=== PATIENT | female | born 1995 | race Caucasian/White ===

== ENCOUNTER 2016-10-02 16:19 | Observation (INO) | payer BC ==
[2015-05-12 09:15] VITALS: BP 111/75
[~2016-10-02 16:19] MED LIST: HYDR-971 PO; NAPR500T PO
== END 2016-10-02 18:35 | disposition home or self-care (01) ==
LOC: 3 SO LND 16:20
PROVIDERS: ADMIT Specialist; ATTEND Specialist
DX: O62.9 Abnormality of forces of labor, unspecified (principal); Z3A.32 32 weeks gestation of pregnancy
CPT/HCPCS: G0378; G0379

== ENCOUNTER 2016-10-07 09:13 | Inpatient (IN) | payer BC ==
[~2016-10-07] VITALS: Ht 160 cm; Wt 81.6 kg
[2016-10-07] MEDS ORDERED: ACETAMINOPHEN 325 MG TABLET. PO PRN (11:00)
[2016-10-07] MEDS ORDERED: ZOLPIDEM 5 MG TABLET. PO PRN (11:00)
[2016-10-07] MEDS ORDERED: ONDANSETRON PF 4 MG/2 ML VIAL. IV PRN ×2 (11:00→16:15)
[2016-10-07] MEDS ORDERED: MAGNESIUM SULFATE 4GM 100 ML IV ONE (11:15)
[2016-10-07] MEDS: IV RINGERS,LACTATED 1000ML 1,000 ML IV SCH ×2 (12:32→19:46)
[2016-10-07] MEDS: MAGNESIUM SULFATE 20GM 500 ML IV SCH ×2 (12:53→23:07)
[2016-10-07 13:21] LABS: BASO % 0 % (0-3); EOS % 1 % (0-3); HEMATOCRIT 29.9 % (36.0-47.0); HEMOGLOBIN 9.8 g/dL (12.0-15.5); LYMPH # 1.3 x10^3/uL (1.0-4.8); LYMPH % 8 % (24-48); MEAN CORPUSCULAR HEMOGLOBIN 28 pg (25-35); MEAN CORPUSCULAR HGB CONC 33 g/dL (31-37); MEAN CORPUSCULAR VOLUME 84 fL (79-100); MONO % 6 % (0-9); NEUT % 86 % (31-73); PLATELET COUNT 234 x10^3/uL (140-400); RED BLOOD COUNT 3.58 x10^6/uL (3.50-5.40); RED CELL DISTRIBUTION WIDTH 16.2 % (11.5-14.5); WHITE BLOOD COUNT 17.3 x10^3/uL (4.0-11.0)
[2016-10-07 14:46] LABS: PLT ESTIMATE ADEQUATE (ADEQUATE); POLYCHROMASIA SLIGHT; TOXIC GRANULATION SLIGHT
[2016-10-07] MEDS ORDERED: HYDROXYZINE PAMOATE 25 MG CAPSULE PO PRN ×2 (16:15→20:00)
--- NOTE | 2016-10-07 17:34 | PDOC1 ---
OB - History Hx of Present Care: Good Care Ultrasounds: Normal mid trimester US Obstetrical Complications: Other (PTL; completed corticosteroids last week.) Medical Complications: None Past Family/Social History * Past Medical, Surgical, Family and Obstetric Histories reviewed from chart. Blood Type: AB+ Rubella: Immune RPR/VDRL: Negative GBS Status: Unknown HBsAG: Negative OB - Chief Complaint & HPI Date of Admission: Date of Admission: Oct 07, 2016 at 09:13 Chief Complaint/History : 2 Para: 1 EGA: 31 Reason for admission: labor Admission Nurse Assessment Rev: Yes Problems: OB - Admission Exam Physical Exam HEENT: Normal Heart: Regular Rate Lungs: Clear, Equal Abdomen: Gravid, Soft, Tender Extremities: Edema Reflexes: Normal Cervical Dilatation: 2cm Effacement: 50% Station: -3 Membranes: Intact Heart Rate: Normal Accelerations: Accelerations Present Decelerations: No decelerations Contractions on Admission: 6-10 Minutes Apart Intensity: Mild Text A: 33 +2 wks IUP PTL s/p corticosteroids last week P: Admit for IV hydration and magnesium sulfate prophylaxis. Continuous monitoring. DEANDRE BANEGAS Jr, MD Oct 07, 2016 17:33
[2016-10-08] MEDS: HYDROXYZINE PAMOATE 25 MG CAPSULE PO SCH ×4 (02:11→21:20)
[2016-10-08] MEDS: MAGNESIUM SULFATE 20GM 500 ML IV SCH ×2 (07:00→17:00)
[2016-10-08 12:19] VITALS: BP 103/63
--- NOTE | 2016-10-08 13:25 | PDOC ---
OB Progress Note Date of Service 10/08/16 Time of Evaluation 1320 Notes Pt. feeling better. No c/o abd contractions since starting Vistaril and Procardia. Counseled on labor and contractions. Lab Laboratory Tests Test 10/07/16 13:00 White Blood Count 17.3x10^3/uL (4.0-11.0) Red Blood Count 3.58x10^6/uL (3.50-5.40) Hemoglobin 9.8g/dL (12.0-15.5) Hematocrit 29.9% (36.0-47.0) Mean Corpuscular Volume 84fL (79-100) Mean Corpuscular Hemoglobin 28pg (25-35) Mean Corpuscular Hemoglobin Concent 33g/dL (31-37) Red Cell Distribution Width 16.2% (11.5-14.5) Platelet Count 234x10^3/uL (140-400) Neutrophils (%) (Auto) 86% (31-73) Lymphocytes (%) (Auto) 8% (24-48) Monocytes (%) (Auto) 6% (0-9) Eosinophils (%) (Auto) 1% (0-3) Basophils (%) (Auto) 0% (0-3) Neutrophils # (Auto) 14.9x10^3uL (1.8-7.7) Lymphocytes # (Auto) 1.3x10^3/uL (1.0-4.8) Monocytes # (Auto) 0.9x10^3/uL (0.0-1.1) Eosinophils # (Auto) 0.1x10^3/uL (0.0-0.7) Basophils # (Auto) 0.0x10^3/uL (0.0-0.2) Segmented Neutrophils % 87% (35-66) Band Neutrophils % 5% (0-9) Lymphocytes % 6% (24-48) Monocytes % 2% (0-10) Toxic Granulation Slight Platelet Estimate Adequate (ADEQUATE) Polychromasia Slight Medications Current Medications Lactated Ringer's (Iv Lactated Ringers) 1,000 ml @ 125 mls/hr Q8H IV Last administered on 10/07/16t 19:46; Start 10/07/16 at 11:15 Acetaminophen (Tylenol) 650 mg PRN Q6HRS PRN PO MILD PAIN / TEMP; Start at 11:00 Ondansetron HCl (Zofran) 4 mg PRN Q4HRS PRN IV NAUSEA/VOMITING Last administered on 10/07/16 16:25; Start 10/07/16 at 11:00 Zolpidem Tartrate 5 mg 5 mg PRN QHS PRN PO INSOMNIA; Start 10/07/16 at 11:00 Magnesium Sulfate/ Dextrose 100 ml @ 25 mls/hr 1X ONCE IV Last administered on 10/07/16 12:33; Start 10/07/16 at 11:15; Stop 10/07/16 at 15:14; Status DC Magnesium Sulfate (Magnesium Sulfate PREMIX 20GM) 500 ml @ 50 mls/hr Q10H IV Last administered on 10/07/16 23:07; Start 10/07/16 at 11:00 Ondansetron HCl (Zofran) 8 mg PRN Q6HRS PRN IV NAUSEA/VOMITING; Start 10/07/16 at 16:15 Hydroxyzine Pamoate (Vistaril) 50 mg PRN Q6HRS PRN PO ITCHING Last administered on 10/07/16 20:06; Start 10/07/16 at 16:15; Stop 10/08/16 at 02:00 ; Status DC Hydroxyzine Pamoate (Vistaril) 50 mg PRN Q6HRS PRN PO ITCHING; Start 10/07/16 at 20:00; Status Cancel Hydroxyzine Pamoate (Vistaril) 50 mg Q6HRS PO Last administered on 10/08/16 09 :14; Start 10/08/16 at 02:00 Nifedipine (Procardia) 10 mg Q6HRS PO ; Start 10/08/16 at 12:00 Active Scripts Active Naprosyn (Naproxen) 500 Mg Tablet 1 Tab PO BID [place] 5-325 Tablet (Acetaminophen/Hydrocodone Bitart) 1 Each Tablet 1-2 Tab PO Q4-6HRS Naprosyn (Naproxen) 500 Mg Tablet 1 Tab PO BID [place] 5-325 Tablet (Acetaminophen/Hydrocodone Bitart) 1 Each Tablet 1-2 Tab PO Q4-6HRS Exam Abd: soft, non tender, fundus non tender Pelvic: deferred. Assessment A: 33+3 wks IUP PTL: stable Completed corticosteroids last week Plan of Care: Continue current Tx, Mgmt (If no contractions or cervical change , then consider d/c home tomorrow.) DEANDRE BANEGAS Jr, MD Oct 08, 2016 13:25
[2016-10-08] MEDS: NIFEDIPINE 10 MG CAPSULE PO SCH ×2 (18:00→18:32)
[2016-10-09] MEDS: MAGNESIUM SULFATE 20GM 500 ML IV SCH ×2 (03:00→13:00)
[2016-10-09] MEDS: HYDROXYZINE PAMOATE 25 MG CAPSULE PO SCH ×3 (03:16→14:35)
[2016-10-09] MEDS: NIFEDIPINE 10 MG CAPSULE PO SCH ×2 (05:45→12:06)
[2016-10-09] MEDS ORDERED: AMMONIA AROMATIC 15% INHALANT AMPUL. ONE ×2 (11:00→11:13)
[2016-10-09 12:06] VITALS: BP 111/58
--- NOTE | 2016-10-09 12:57 | PDOC ---
OB Progress Note Date of Service 10/09/16 Time of Evaluation 1250 Notes Pt. feeling stronger contractions. She is now taking PO procardia and vistaril for contractions. Lab Laboratory Tests Test 10/07/16 13:00 White Blood Count 17.3x10^3/uL (4.0-11.0) Red Blood Count 3.58x10^6/uL (3.50-5.40) Hemoglobin 9.8g/dL (12.0-15.5) Hematocrit 29.9% (36.0-47.0) Mean Corpuscular Volume 84fL (79-100) Mean Corpuscular Hemoglobin 28pg (25-35) Mean Corpuscular Hemoglobin Concent 33g/dL (31-37) Red Cell Distribution Width 16.2% (11.5-14.5) Platelet Count 234x10^3/uL (140-400) Neutrophils (%) (Auto) 86% (31-73) Lymphocytes (%) (Auto) 8% (24-48) Monocytes (%) (Auto) 6% (0-9) Eosinophils (%) (Auto) 1% (0-3) Basophils (%) (Auto) 0% (0-3) Neutrophils # (Auto) 14.9x10^3uL (1.8-7.7) Lymphocytes # (Auto) 1.3x10^3/uL (1.0-4.8) Monocytes # (Auto) 0.9x10^3/uL (0.0-1.1) Eosinophils # (Auto) 0.1x10^3/uL (0.0-0.7) Basophils # (Auto) 0.0x10^3/uL (0.0-0.2) Segmented Neutrophils % 87% (35-66) Band Neutrophils % 5% (0-9) Lymphocytes % 6% (24-48) Monocytes % 2% (0-10) Toxic Granulation Slight Platelet Estimate Adequate (ADEQUATE) Polychromasia Slight Medications Current Medications Lactated Ringer's (Iv Lactated Ringers) 1,000 ml @ 125 mls/hr Q8H IV Last administered on 10/07/16t 19:46; Start 10/07/16 at 11:15 Acetaminophen (Tylenol) 650 mg PRN Q6HRS PRN PO MILD PAIN / TEMP; Start at 11:00 Ondansetron HCl (Zofran) 4 mg PRN Q4HRS PRN IV NAUSEA/VOMITING Last administered on 10/07/16 16:25; Start 10/07/16 at 11:00 Zolpidem Tartrate 5 mg 5 mg PRN QHS PRN PO INSOMNIA; Start 10/07/16 at 11:00 Magnesium Sulfate/ Dextrose 100 ml @ 25 mls/hr 1X ONCE IV Last administered on 10/07/16 12:33; Start 10/07/16 at 11:15; Stop 10/07/16 at 15:14; Status DC Magnesium Sulfate (Magnesium Sulfate PREMIX 20GM) 500 ml @ 50 mls/hr Q10H IV Last administered on 10/07/16 23:07; Start 10/07/16 at 11:00 Ondansetron HCl (Zofran) 8 mg PRN Q6HRS PRN IV NAUSEA/VOMITING; Start 10/07/16 at 16:15 Hydroxyzine Pamoate (Vistaril) 50 mg PRN Q6HRS PRN PO ITCHING Last administered on 10/07/16 20:06; Start 10/07/16 at 16:15; Stop 10/08/16 at 02:00 ; Status DC Hydroxyzine Pamoate (Vistaril) 50 mg PRN Q6HRS PRN PO ITCHING; Start 10/07/16 at 20:00; Status Cancel Hydroxyzine Pamoate (Vistaril) 50 mg Q6HRS PO Last administered on 10/09/16 09 :18; Start 10/08/16 at 02:00 Nifedipine (Procardia) 10 mg Q6HRS PO Last administered on 10/09/16 12:06; Start 10/08/16 at 12:00 Ammonia (Aromatic Spirit) (Amoply) 1 each STK-MED ONCE .ROUTE ; Start 10/09/16 at 11:13; Stop 10/09/16 at 11:14; Status DC Active Scripts Active Naprosyn (Naproxen) 500 Mg Tablet 1 Tab PO BID [place] 5-325 Tablet (Acetaminophen/Hydrocodone Bitart) 1 Each Tablet 1-2 Tab PO Q4-6HRS Naprosyn (Naproxen) 500 Mg Tablet 1 Tab PO BID [place] 5-325 Tablet (Acetaminophen/Hydrocodone Bitart) 1 Each Tablet 1-2 Tab PO Q4-6HRS Exam Pelvic: cvx 3/80/-2 [place]: ctx's every 5-8 minutes FHT's Category 1 Assessment 33+4 wks IUP Completed corticosteroids Plan of Care: See new orders (Start IV fluids. Continue PO procardia and vistaril. If GBS positive, then start abx.) DEANDRE BANEGAS Jr, MD Oct 09, 2016 12:57
[2016-10-09] MEDS ORDERED: LOPERAMIDE 2 MG CAPSULE PO PRN (13:15)
[2016-10-09] MEDS: IV RINGERS,LACTATED 1000ML 1,000 ML IV SCH (14:00)
--- NOTE | 2016-10-09 15:03 | RAD ---
Obstetrical ultrasound, 10/09/2016: History: labor There is a single intrauterine fetus in a cephalic orientation. Due to the position, the head measurements were not optimal. A biparietal diameter of 8.5 cm was obtained suggesting a gestational age of 34 weeks. The femur length and abdominal circumference measurement suggests a gestational age of closer to 33 weeks. The average gestational age based on all of the measurements is 33 weeks and 3 days yielding a sonographic EDC of 11/24/2016. Normal activity and heart motion were seen. The heart rate was 137 bpm. The weight was estimated at 4 lbs 11 oz. +/- 11 ounces. No specific abnormality is detected. The placenta lies posteriorly extending into the fundal region. The amniotic fluid index of 10.5 is within normal limits. The cervix was not adequately delineated due to the position of the head. IMPRESSION: Single viable intrauterine fetus of 33-34 weeks gestational age as described above.
[2016-10-09] MEDS ORDERED: MAGNESIUM SULFATE 4GM 100 ML IV ONE (16:00)
[2016-10-09] MEDS ORDERED: AMPICILLIN 2 GM in IV NORMAL SALINE 100ML 100 ML IV ONE (16:00)
[2016-10-09] MEDS ORDERED: MAGNESIUM SULFATE 2GM 50 ML IV ONE (16:00)
[2016-10-09] MEDS ORDERED: ERYTHROMYCIN LACT 250 MG in IV NORMAL SALINE 100ML 100 ML IV SCH (18:00)
== END 2016-10-09 17:00 | disposition short-term general hospital (02) | DRG 778 ==
LOC: 3 SO LND 09:13 → OBSVTOIN 09:13
PROVIDERS: ADMIT Specialist; ATTEND Specialist
DX: O60.03 Preterm labor without delivery, third trimester (principal); Z3A.33 33 weeks gestation of pregnancy
CPT/HCPCS: 36415; 76805; 85007; 85027; 87653; J0290; J1364; J2405; J3475; J7120; Q0177

== ENCOUNTER 2016-10-15 11:04 | Observation (INO) | payer BC ==
[2016-10-15] MEDS ORDERED: ONDANSETRON PF 4 MG/2 ML VIAL. IV PRN (11:45)
[2016-10-15 11:48] LABS: BILIRUBIN,URINE SMALL (NEG); GLUCOSE,URINE NEGATIVE (NEG); NITRITE,URINE NEGATIVE (NEG); PROTEIN,URINE 100 mg/dL (NEG-TRACE); UROBILINOGEN,URINE 0.2 mg/dL (0.2 mg/dL)
[2016-10-15] MEDS ORDERED: IV RINGERS,LACTATED 1000ML 1,000 ML IV SCH (12:00)
[2016-10-15 12:04] LABS: BACTERIA,URINE FEW /HPF (0-FEW); RBC,URINE 0 /HPF (0-2); SQUAMOUS EPITHELIAL CELL,UR MANY /LPF
[2016-10-15] MEDS ORDERED: IV DEXTROSE 5%-LACT RINGERS 1,000 ML IV SCH (15:00)
[2016-10-15] MEDS ORDERED: ACETAMINOPHEN 500 MG TABLET PO PRN (15:45)
[2016-10-15 16:59] LABS: OBC FLU VALID
[2016-10-15 17:58] LABS: BASO % 0 % (0-3); EOS % 0 % (0-3); HEMATOCRIT 28.8 % (36.0-47.0); HEMOGLOBIN 9.2 g/dL (12.0-15.5); LYMPH # 0.6 x10^3/uL (1.0-4.8); LYMPH % 5 % (24-48); MEAN CORPUSCULAR HEMOGLOBIN 27 pg (25-35); MEAN CORPUSCULAR HGB CONC 32 g/dL (31-37); MEAN CORPUSCULAR VOLUME 84 fL (79-100); MONO % 5 % (0-9); NEUT % 89 % (31-73); PLATELET COUNT 195 x10^3/uL (140-400); RED BLOOD COUNT 3.45 x10^6/uL (3.50-5.40); WHITE BLOOD COUNT 11.9 x10^3/uL (4.0-11.0)
[2016-10-15 18:13] LABS: ALBUMIN 2.1 g/dL (3.4-5.0); ALBUMIN/GLOBULIN RATIO 0.6 (1.0-1.7); CALCIUM 8.1 mg/dL (8.5-10.1); CREATININE 0.6 mg/dL (0.6-1.0); GFR 123.9; POTASSIUM 3.6 mmol/L (3.5-5.1); TOTAL BILIRUBIN 0.4 mg/dL (0.2-1.0); TOTAL PROTEIN 5.8 g/dL (6.4-8.2)
[2016-10-15 18:39] LABS: ANISOCYTOSIS SLIGHT; HYPOCHROMIA SLIGHT; PLT ESTIMATE ADEQUATE (ADEQUATE)
== END 2016-10-15 20:15 | disposition home or self-care (01) ==
LOC: 3 SO LND 11:04
PROVIDERS: ADMIT Specialist; ATTEND Specialist
DX: O21.9 Vomiting of pregnancy, unspecified (principal); O26.893 Other specified pregnancy related conditions, third trimester; R19.7 Diarrhea, unspecified; Z3A.34 34 weeks gestation of pregnancy
CPT/HCPCS: 36415; 80053; 81001; 81003; 85007; 85027; 87086; 87804; 96360; 96361; G0378; G0379; J1720; J7120

== ENCOUNTER 2016-11-10 16:39 | Observation (INO) | payer BC | END 2016-11-10 22:03 | disposition home or self-care (01) | LOC: 3 SO LND 16:39 | PROVIDERS: ADMIT Specialist; ATTEND Specialist | DX: O26.893 Other specified pregnancy related conditions, third trimester (principal); M79.89 Other specified soft tissue disorders; O62.9 Abnormality of forces of labor, unspecified; Z3A.38 38 weeks gestation of pregnancy | CPT/HCPCS: G0378; G0379 ==

== ENCOUNTER 2016-11-12 16:35 | Inpatient (IN) | payer BC ==
[~2016-11-12] VITALS: Ht 160 cm; Wt 82.6 kg
[2016-11-12] MEDS ORDERED: IV RINGERS,LACTATED 1000ML 1,000 ML IV SCH (16:38)
[2016-11-12] MEDS ORDERED: ONDANSETRON PF 4 MG/2 ML VIAL. IV PRN (16:45)
[2016-11-12] MEDS ORDERED: ZOLPIDEM 5 MG TABLET. PO PRN ×2 (16:45→20:45)
[2016-11-12] MEDS ORDERED: TERBUTALINE 1 MG/ML VIAL. SQ PRN (16:45)
[2016-11-12] MEDS ORDERED: LIDOCAINE 1% PF 30 ML VIAL. INJ PRN (16:45)
[2016-11-12] MEDS ORDERED: IBUPROFEN 600 MG TABLET. PO PRN (16:45)
[2016-11-12] MEDS ORDERED: 0.9 % SODIUM CHLORIDE 10 ML DISP.SYRIN. IV PRN ×2 (16:45→20:45)
[2016-11-12] MEDS ORDERED: FENTANYL PF 100 MCG/2 ML VIAL. IV PRN (16:45)
[2016-11-12] MEDS ORDERED: OXYTOCIN 30 UNIT/500 ML PREMIX 500 ML IV PRN ×3 (16:45→20:45)
[2016-11-12 17:17] VITALS: BP 110/75
[2016-11-12 18:13] LABS: HEMATOCRIT 31.4 % (36.0-47.0); HEMOGLOBIN 9.7 g/dL (12.0-15.5); RED BLOOD COUNT 3.86 x10^6/uL (3.50-5.40); RED CELL DISTRIBUTION WIDTH 17.5 % (11.5-14.5); WHITE BLOOD COUNT 12.8 x10^3/uL (4.0-11.0)
[2016-11-12] MEDS ORDERED: BUTORPHANOL 2 MG VIAL. IV PRN (19:15)
[2016-11-12] MEDS ORDERED: HYDROCORTISONE 1% TOPICAL OINTMENT 30GM TUBE. TP PRN (20:45)
[2016-11-12] MEDS ORDERED: ACETAMINOPHEN 325 MG TABLET. PO PRN (20:45)
[2016-11-12] MEDS ORDERED: MAG HYDROX/ALUMINUM HYD/SIMETH 30 ML ORAL.SUSP PO PRN (20:45)
[2016-11-12] MEDS ORDERED: PHENYLEPH/MINERAL OIL/PETROLAT RECTAL OINTMENT 28GM TUBE. RC PRN (20:45)
[2016-11-12] MEDS ORDERED: HYDROCODONE/APAP 5/325MG TABLET. PO PRN (20:45)
[2016-11-12] MEDS ORDERED: DIPHENHYDRAMINE HCL 25 MG CAPSULE PO PRN (20:45)
[2016-11-12] MEDS ORDERED: SIMETHICONE 80 MG TAB.CHEW PO PRN (20:45)
[2016-11-12] MEDS ORDERED: BENZOCAINE 20% TOPICAL AEROSOL SPRAY 57GM CAN. TP PRN (20:45)
[2016-11-12] MEDS ORDERED: MAGNESIUM HYDROXIDE 2,400 MG/30 ML ORAL.SUSP. PO PRN (20:45)
--- NOTE | 2016-11-12 20:45 | PDOC ---
VAGINAL DELIVERY DATE DATE: 11/12/16 TIME: 20:42 : 3 Para: 1 EDC: Nov 24, 2016 VAGINAL DELIVERY: VTX PLACENTA: Spontaneous 04/01/ SEX: Male WEIGHT 7/6 Nuchal Cord: No Amniotic Fluid: Clear PAIN: Local EPISIOTOMY: No EXTENSION: Yes EBL 400cc COMPLICATIONS none CONDITION Stable Signs of Intrauterine Infectio: None Shoulder Dystocia: No DIAGNOSIS TIUPdel Problems: JAYSON BARNES MD Nov 12, 2016 20:45
[2016-11-12 23:15] VITALS: BP 105/70
[2016-11-13 00:15] VITALS: BP 95/63
[2016-11-13] MEDS: IBUPROFEN 800 MG TABLET. PO SCH (04:05)
[2016-11-13 04:25] VITALS: BP 107/67
[2016-11-13] MEDS: FERROUS SULFATE 325 MG TABLET PO SCH ×2 (07:33→20:34)
[2016-11-13 11:39] VITALS: BP 106/68
[2016-11-13 16:10] VITALS: BP 96/62
--- NOTE | 2016-11-13 18:35 | PDOC ---
Provider Note Provider Note Doing well VSS Uterus NTTP FU in AM JAYSON BRANES MD Nov 13, 2016 18:35
[2016-11-13 20:40] VITALS: BP 104/67
[2016-11-14 01:03] VITALS: BP 103/66
[2016-11-14] MEDS: IBUPROFEN 800 MG TABLET. PO SCH (05:25)
[2016-11-14 05:30] VITALS: BP 111/65
--- NOTE | 2016-11-14 12:59 | PDOC ---
OB Progress Note Date of Service 11/14/16 Time of Evaluation 1250 Notes Pt. feeling well. No complaints. Lab Laboratory Tests Test 11/12/16 18:00 11/13/16 03:55 White Blood Count 12.8x10^3/uL (4.0-11.0) Red Blood Count 3.86x10^6/uL (3.50-5.40) Hemoglobin 9.7g/dL (12.0-15.5) Hematocrit 31.4% (36.0-47.0) 28.1% (36.0-47.0) Mean Corpuscular Volume 81fL (79-100) Mean Corpuscular Hemoglobin 25pg (25-35) Mean Corpuscular Hemoglobin Concent 31g/dL (31-37) Red Cell Distribution Width 17.5% (11.5-14.5) Platelet Count 209x10^3/uL (140-400) RPR Titer Additional Testing Non reactive (Non Reactive) Medications Current Medications Sodium Chloride 3 ml 3 ml QSHIFT PRN IV AFTER MEDS AND BLOOD DRAWS; Start 11/12 at 16:45; Stop 11/13/16 at 07:04; Status DC Lactated Ringer's (Iv Lactated Ringers) 1,000 ml @ 125 mls/hr Q8H IV Last administered on 11/12/16 17:15; Start 11/12/16 at 16:38; Stop 11/13/16 at 07:04 ; Status DC Fentanyl Citrate (Fentanyl 2ml Vial) 100 mcg PRN Q30MIN PRN IV Severe pain Last administered on 11/12/16 18:19; Start 11/12/16 at 16:45; Stop 11/13/16 at 07:04; Status DC Ondansetron HCl (Zofran) 4 mg PRN Q4HRS PRN IV NAUSEA/VOMITING; Start 11/12/16 at 16:45; Stop 11/13/16 at 07:04; Status DC Zolpidem Tartrate (Ambien) 5 mg PRN QHS PRN PO INSOMNIA; Start 11/12/16 at 16: 45 Terbutaline Sulfate (Brethine) 0.25 mg 1X PRN PRN SQ SEE COMMENTS; Start at 16:45; Stop 11/13/16 at 07:04; Status DC Lidocaine HCl 30 ml 30 ml 1X PRN PRN INJ SEE COMMENTS Last administered on 11/12 20:08; Start 11/12/16 at 16:45; Stop 11/13/16 at 07:04; Status DC Oxytocin/Sodium Chloride 500 ml @ 0 mls/hr CONT PRN IV SEE I/O RECORD Last administered on 11/12/16 17:16; Start 11/12/16 at 16:45; Stop 11/13/16 at 07:04 ; Status DC Oxytocin/Sodium Chloride (Oxytocin Premix Infusion) 500 ml @ 0 mls/hr CONT PRN PRN IV Post delivery bleeding; Start 11/12/16 at 16:45; Stop 11/13/16 at 07:04; Status DC Ibuprofen (Motrin) 600 mg PRN Q6HRS PRN PO PAIN Last administered on 11/13/16 11:32; Start 11/12/16 at 16:45 Butorphanol Tartrate (Stadol) 2 mg PRN Q4HRS PRN IV PAIN Last administered on 19:16; Start 11/12/16 at 19:15; Stop 11/13/16 at 07:04; Status DC Sodium Chloride 10 ml 10 ml QSHIFT PRN IV AFTER MEDS AND BLOOD DRAWS; Start at 20:45; Stop 11/13/16 at 07:04; Status DC Oxytocin/Sodium Chloride (Oxytocin Premix Infusion) 500 ml @ 62.5 mls/hr CONT PRN IV SEE I/O RECORD; Start 11/12/16 at 20:45; Stop 11/13/16 at 04:44; Status DC Acetaminophen (Tylenol) 650 mg PRN Q6HRS PRN PO MILD PAIN / TEMP; Start at 20:45 Ibuprofen (Motrin) 800 mg Q8HRS PO Last administered on 11/14/16 05:25; Start 11/12/16 at 22:00 Magnesium Hydroxide (Milk Of Magnesia) 2,400 mg PRN DAILY PRN PO CONSTIPATION; Start 11/12/16 at 20:45 Al Hydroxide/Mg Hydroxide (Mylanta Plus Xs) 30 ml PRN Q4HRS PRN PO HEARTBURN / GAS; Start 11/12/16 at 20:45 Simethicone (Gas-X) 80 mg PRN AFTMEALHC PRN PO GAS / BLOATING; Start 11/12/16 at 20:45 Diphenhydramine HCl (Benadryl) 25 mg PRN Q6HRS PRN PO ITCHING; Start 11/12/16 at 20:45 Benzocaine (Americaine) 1 spray PRN QID PRN TP TOPICAL PAIN Last administered on 11/12/16 22:55; Start 11/12/16 at 20:45 Phenyleph/Shark Oil/Min Oil/Petrol (Preparation H) 1 maine PRN QID PRN RC RECTAL PAIN; Start 11/12/16 at 20:45 Hydrocortisone (Cortaid) 1 maine PRN QID PRN TP RECTAL PAIN; Start 11/12/16 at 20 :45 Ferrous Sulfate (Feosol) 325 mg BIDWMEALS PO Last administered on 11/13/16 20: 34; Start 11/13/16 at 08:00 Zolpidem Tartrate (Ambien) 5 mg PRN QHS PRN PO INSOMNIA, MAY REPEAT X1; Start 11/12/16 at 20:45 Info (Do NOT chart on this placeholder) 1 ea 1X PRN PRN MC SEE COMMENTS; Start 11/12/16 at 20:45 Acetaminophen/ Hydrocodone Bitart (Lortab 5/325) 1 tab PRN Q4HRS PRN PO PAIN; Start 11/12/16 at 20:45 Active Scripts Active Naprosyn (Naproxen) 500 Mg Tablet 1 Tab PO BID [place] 5-325 Tablet (Acetaminophen/Hydrocodone Bitart) 1 Each Tablet 1-2 Tab PO Q4-6HRS Naprosyn (Naproxen) 500 Mg Tablet 1 Tab PO BID [place] 5-325 Tablet (Acetaminophen/Hydrocodone Bitart) 1 Each Tablet 1-2 Tab PO Q4-6HRS Exam Abd: soft,non tender, fundus firm Assessment PPD#2 s/p Plan of Care: See new orders (D/c home.) DEANDRE BANEGAS Jr, MD Nov 14, 2016 12:59
--- NOTE | 2016-11-14 13:02 | DISCH ---
DISCHARGE INSTRUCTIONS Condition on Discharge Condition on Discharge: Stable Activity After Discharge Activity Instructions for Disc: Activity as tolerated Lifting Instructions after Dis: No heavy lifting Driving Instructions after Dis: Do not drive today Diet after Discharge Diet after Discharge: Regular Contacting the DRBethany after DC Call your doctor for: Concerns you may have Follow-Up Follow up with: Dr. Teran in 2 weeks. DEANDRE BANEGAS Jr, MD Nov 14, 2016 13:02
[2016-11-14] MEDS ORDERED: IBUP-1060 PO (13:03)
[2016-11-14 14:41] VITALS: BP 100/70
== END 2016-11-14 14:47 | disposition home or self-care (01) | DRG 775 ==
LOC: 3 SO LND 16:35 → 3 NORTH 23:12
PROVIDERS: ADMIT Specialist; ATTEND Specialist
PROC: 10E0XZZ Delivery of Products of Conception, External Approach (ICD-10-PCS; principal; 2016-11-12)
DX: O80 Encounter for full-term uncomplicated delivery (principal); Z37.0 Single live birth; Z3A.00 Weeks of gestation of pregnancy not specified
CPT/HCPCS: 36415; 85014; 85027; 86593; 86850; 86900; 86901; J2590; J3010; J7120

== ENCOUNTER 2018-07-26 10:29 | Emergency (ER) | payer BC ==
[~2018-07-26] VITALS: Ht 160 cm; Wt 81.6 kg
[~2018-07-26 10:29] MED LIST changes: +HYDR-3164 PO; -HYDR-971 PO; +IBUP-1060 PO; +NAPR-683 PO; -NAPR500T PO
[2018-07-26 11:30] LABS: BILIRUBIN,URINE NEGATIVE (NEG); CLARITY,URINE CLOUDY; COLOR,URINE YELLOW; NITRITE,URINE POSITIVE (NEG); PH,URINE 6.5; PROTEIN,URINE 30 mg/dL (NEG-TRACE)
[2018-07-26] MEDS ORDERED: HYDROcodone/APAP 5/325MG 1 TAB TABLET PO ONE (11:30)
[2018-07-26] MEDS ORDERED: IV NORMAL SALINE 1000ML BAG 1,000 ML IV ONE (11:45)
[2018-07-26 11:46] LABS: BACTERIA,URINE MANY /HPF (0-FEW)
[2018-07-26 12:08] LABS: BASO % 0 % (0-3); EOS % 0 % (0-3); HEMATOCRIT 42.1 % (36.0-47.0); HEMOGLOBIN 14.4 g/dL (12.0-15.5); LYMPH # 0.8 x10^3/uL (1.0-4.8); LYMPH % 6 % (24-48); MEAN CORPUSCULAR HEMOGLOBIN 31 pg (25-35); MEAN CORPUSCULAR HGB CONC 34 g/dL (31-37); MEAN CORPUSCULAR VOLUME 91 fL (79-100); MONO # 0.8 x10^3/uL (0.0-1.1); MONO % 6 % (0-9); NEUT % 88 % (31-73); PLATELET COUNT 361 x10^3/uL (140-400); RED BLOOD COUNT 4.63 x10^6/uL (3.50-5.40); RED CELL DISTRIBUTION WIDTH 13.1 % (11.5-14.5); WHITE BLOOD COUNT 13.7 x10^3/uL (4.0-11.0)
--- NOTE | 2018-07-26 12:09 | RAD ---
Chest, 2 views, 07/26/2018: HISTORY: Chest pain The heart size is normal. No pulmonary infiltrate is seen. There is no evidence of pleural fluid. IMPRESSION: No acute cardiopulmonary abnormality is detected. Electronically signed by: Jim Valera MD (07/26/2018 12:05 PM) [facility]
--- NOTE | 2018-07-26 12:14 | PHYS DOC ---
Past Medical History Past Medical History: No Pertinent History Past Surgical History: No Surgical History Alcohol Use: None Drug Use: None Adult General Chief Complaint Chief Complaint: COUGH HPI HPI Patient is a 23 year old female who presents with back pain and left side, left abdominal pain, nausea started early this morning. Patient denies throat pain, ear pain, dysuria, constipation. Patient states she took Excedrin at 6:15 this morning. Patient denies vaginal discharge or vaginal bleeding. She has no known allergies. Patient's current temperature is 102.4 with a heart rate of 132. Review of Systems Review of Systems Constitutional: fever or chills [] Eyes: Denies change in visual acuity, redness, or eye pain [] HENT: Denies nasal congestion or sore throat [] Respiratory: Denies cough or shortness of breath [] Cardiovascular: No additional information not addressed in HPI [] GI: left upper abdominal pain, nausea, Denies vomiting, bloody stools or diarrhea [] : Denies dysuria or hematuria [] Musculoskeletal: Denies back pain or joint pain [] Integument: Denies rash or skin lesions [] Neurologic: Denies headache, focal weakness or sensory changes [] All other systems were reviewed and found to be within normal limits, except as documented in this note. Current Medications Current Medications Current Medications Medications (Trade) Dose Ordered Sig/Carito Start Time Stop Time Status Last Admin Dose Admin Acetaminophen/ Hydrocodone Bitart (Lortab 5/325) 1 tab 1X ONCE 07/26/18 11:30 07/26/18 11:31 DC 07/26/18 11:36 1 TAB Info (CONTRAST GIVEN -- Rx MONITORING) 1 each PRN DAILY PRN 07/26/18 12:30 07/28/18 12:29 Iohexol (Omnipaque 300 Mg/ml) 75 ml 1X ONCE 07/26/18 12:30 07/26/18 12:33 DC Ketorolac Tromethamine (Toradol 30mg Vial) 30 mg 1X ONCE 07/26/18 12:15 07/26/18 12:19 DC 07/26/18 12:45 30 MG Sodium Chloride 1,000 ml @ 1,000 mls/hr 1X ONCE 07/26/18 11:45 07/26/18 12:44 DC 07/26/18 12:03 1,000 MLS/HR Allergies Allergies Allergies Coded Allergies Type Severity Reaction Last Updated Verified No Known Drug Allergies 01/20/15 No Physical Exam Physical Exam Constitutional: Well developed, well nourished, no acute distress, non-toxic appearance. [] HENT: Normocephalic, atraumatic, bilateral external ears normal, oropharynx moist, no oral exudates, nose normal. [] Eyes: PERRLA, EOMI, conjunctiva normal, no discharge. [] Neck: Normal range of motion, no tenderness, supple, no stridor. [] Cardiovascular:Heart rate regular rhythm, no murmur [] Lungs & Thorax: Bilateral breath sounds clear to auscultation [] Abdomen: Bowel sounds normal, soft, Left upper, low mid tenderness, no masses, no pulsatile masses. [] Skin: Warm, dry, no erythema, no rash. [] Back: No tenderness, Left CVA tenderness. [] Extremities: No tenderness, no cyanosis, no clubbing, ROM intact, no edema. [] Neurologic: Alert and oriented X 3, normal motor function, normal sensory function, no focal deficits noted. [] Psychologic: Affect normal, judgement normal, mood normal. [] Current Patient Data Vital Signs Vital Signs Date Time Temp Pulse Resp B/P (MAP) Pulse Ox O2 Delivery O2 Flow Rate FiO2 07/26/18 11:36 18 99 Room Air 07/26/18 10:54 102.4 132 123/72 (89) 102.4 Lab Values Laboratory Tests Test 07/26/18 10:58 07/26/18 11:24 07/26/18 11:39 07/26/18 11:50 Urine Collection Type Unknown Urine Color Yellow Urine Clarity Cloudy Urine pH 6.5 Urine Specific [place] 1.015 Urine Protein 30 mg/dL (NEG-TRACE) Urine Glucose (UA) Negative mg/dL (NEG) Urine Ketones (Stick) Negative mg/dL (NEG) Urine Blood Large (NEG) Urine Nitrite Positive (NEG) Urine Bilirubin Negative (NEG) Urine Urobilinogen Dipstick 1.0 mg/dL (0.2 mg/dL) Urine Leukocyte Esterase Large (NEG) Urine RBC 6-10 /HPF (0-2) Urine WBC 11-20 /HPF (0-4) Urine Bacteria Many /HPF (0-FEW) POC Urine HCG, Qualitative Hcg negative (Negative) Influenza Type A Antigen Negative (NEGATIVE) Influenza Type B Antigen Negative (NEGATIVE) Group A Streptococcus Rapid Negative (NEGATIVE) Test 07/26/18 11:58 White Blood Count 13.7 x10^3/uL (4.0-11.0) H Red Blood Count 4.63 x10^6/uL (3.50-5.40) Hemoglobin 14.4 g/dL (12.0-15.5) Hematocrit 42.1 % (36.0-47.0) Mean Corpuscular Volume 91 fL (79-100) Mean Corpuscular Hemoglobin 31 pg (25-35) Mean Corpuscular Hemoglobin Concent 34 g/dL (31-37) Red Cell Distribution Width 13.1 % (11.5-14.5) Platelet Count 361 x10^3/uL (140-400) Neutrophils (%) (Auto) 88 % (31-73) H Lymphocytes (%) (Auto) 6 % (24-48) L Monocytes (%) (Auto) 6 % (0-9) Eosinophils (%) (Auto) 0 % (0-3) Basophils (%) (Auto) 0 % (0-3) Neutrophils # (Auto) 12.0 x10^3uL (1.8-7.7) H Lymphocytes # (Auto) 0.8 x10^3/uL (1.0-4.8) L Monocytes # (Auto) 0.8 x10^3/uL (0.0-1.1) Eosinophils # (Auto) 0.0 x10^3/uL (0.0-0.7) Basophils # (Auto) 0.0 x10^3/uL (0.0-0.2) Platelet Estimate Pending Sodium Level 138 mmol/L (136-145) Potassium Level 3.3 mmol/L (3.5-5.1) L Chloride Level 99 mmol/L (98-107) Carbon Dioxide Level 27 mmol/L (21-32) Anion Gap 12 (6-14) Blood Urea Nitrogen 6 mg/dL (7-20) L Creatinine 1.0 mg/dL (0.6-1.0) Estimated GFR (Cockcroft-Gault) 67.6 Glucose Level 106 mg/dL (70-99) H Calcium Level 9.4 mg/dL (8.5-10.1) Total Bilirubin 0.6 mg/dL (0.2-1.0) Direct Bilirubin 0.2 mg/dL (0.0-0.2) Aspartate Amino Transferase (AST) 48 U/L (15-37) H Alanine Aminotransferase (ALT) 67 U/L (14-59) H Alkaline Phosphatase 104 U/L (46-116) Total Protein 8.2 g/dL (6.4-8.2) Albumin 4.1 g/dL (3.4-5.0) Lipase 88 U/L (73-393) Heterophil Agglutinins Negative (NEGATIVE) Laboratory Tests 07/26/18 11:58 Laboratory Tests 07/26/18 11:58 EKG EKG [] Radiology/Procedures Radiology/Procedures [] Impressions: [place] [address] IMAGING REPORT Signed PATIENT: NAIDA FRENCH ACCOUNT: [id number] : 1995 LOCATION: ER AGE: 23 SEX: F EXAM STATUS: REG ER ORD. PHYSICIAN: JACKLYN LUCERO APRN REASON: pain and fever PROCEDURE: CHEST PA & LATERAL Chest, 2 views, 07/26/2018: HISTORY: Chest pain The heart size is normal. No pulmonary infiltrate is seen. There is no evidence of pleural fluid. IMPRESSION: No acute cardiopulmonary abnormality is detected. Electronically signed by: Jim Valera MD (07/26/2018 12:05 PM) [facility] DICTATED and SIGNED BY: JIM VALERA MD DATE: 07/26/[address] [id number] IMAGING REPORT Signed PATIENT: NAIDA FRENCH ACCOUNT: [id number] : 1995 LOCATION: ER AGE: 23 SEX: F EXAM STATUS: REG ER ORD. PHYSICIAN: JACKLYN LUCERO APRN REASON: fever left upper abdominal pain PROCEDURE: CT ABD PELV W/ IV CONTRST ONLY CT of the abdomen and pelvis with contrast, 07/26/2018: HISTORY: Upper abdominal pain, fever Multidetector CT imaging was performed following an IV bolus injection of iodinated contrast material. No oral contrast material was administered for this exam. There is minimal streaky atelectasis posteriorly in the lung bases. The liver is at the upper limits of normal in size measuring 20 cm in craniocaudad extent at the level the right lobe. No hepatic mass or bile duct dilatation is evident. No dense gallstones are evident. The pancreas is unremarkable. The spleen is within normal limits in size measuring 13 cm in craniocaudad extent. No renal or adrenal abnormality is detected. No abdominal or pelvic adenopathy is seen. The uterus and ovaries are unremarkable. The bowel loops are not dilated. The appendix shows no abnormality. No free fluid or free air is evident in the abdomen or pelvis. IMPRESSION: 1. The liver is at the upper limits of normal in size. 2. No acute abdominal or pelvic abnormality is detected. Electronically signed by: Jim Valera MD (07/26/2018 12:53 PM) [facility] DICTATED and SIGNED BY: JIM VALERA MD DATE: 07/26/18 1246 Course & Med Decision Making Course & Med Decision Making Patient is a 23 year old female who presents with back pain and left side, left abdominal pain, nausea started early this morning. Patient denies throat pain, ear pain, dysuria, constipation. Patient states she took Excedrin at 6:15 this morning. Patient denies vaginal discharge or vaginal bleeding. She has no known allergies. Patient's current temperature is 102.4 with a heart rate of 132. Abdomen is soft but with left upper and lower tenderness. Throat is pink without states. Bilateral tympanic membranes are pearly white. Lungs are clear to auscultation. She denies any shortness of air or chest pain. Patient has no rashes. Mucous membranes are moist. She has not vomited or had diarrhea. Alert and oriented. Skin is pink warm and dry. Patient has no extremity edema. Neurologically intact. She denies headache or dizziness. Patient is given a normal saline bolus, Toradol, [place]. Strep is negative. Urinalysis shows nitrites. WBC blood cell count is elevated at 13.7. 1230: After she is receiving a bolus her heart rate has come down to 100 and temperature is down to 100. [place] and strep negative. 0100: CT abdomen and pelvis show 1. The liver is at the upper limits of normal in size. 2. No acute abdominal or pelvic abnormality is detected. Patient's liver enzymes are also elevated. The spleen is within normal limits. Patient will be treated with Keflex antibiotic. Patient should continue taking ibuprofen for pain. To follow-up with her primary care doctor. [] Dragon Disclaimer Dragon Disclaimer This electronic medical record was generated, in whole or in part, using a voice recognition dictation system. Departure Departure Impression: Primary Impression: Urinary tract infection Disposition: HOME, SELF-CARE Condition: STABLE Referrals: NO PCP (PCP) Patient Instructions: Urinary Tract Infection Additional Instructions: Follow up with your Primary care provider next couple days. Ibuprofen for pain or fever. Drink plenty of fluids. Take medications as prescribed. Scripts Cephalexin (KEFLEX) 500 Mg Capsule 1 CAP PO TID, #30 CAP Prov: JACKLYN LUCERO APRN 07/26/18 Problem Qualifiers Primary Impression: Urinary tract infection Urinary tract infection type: site unspecified Hematuria presence: with hematuria Qualified Codes: N39.0 - Urinary tract infection, site not specified ; R31.9 - Hematuria, unspecified JACKLYN LUCERO APRN Jul 26, 2018 12:14
[2018-07-26] MEDS ORDERED: KETOROLAC 30 MG/ML VIAL. IV ONE (12:15)
[2018-07-26 12:19] LABS: CALCIUM 9.4 mg/dL (8.5-10.1); GFR 67.6; POTASSIUM 3.3 mmol/L (3.5-5.1)
[2018-07-26] MEDS ORDERED: IOHEXOL 300 MG/ML 100ML VIAL. IV ONE (12:30)
[2018-07-26] MEDS ORDERED: CONTRAST GIVEN. MC PRN (12:30)
[2018-07-26 12:31] LABS: MONONUCLEOSIS PATIENT NEGATIVE (NEGATIVE)
[2018-07-26 12:56] LABS: ALBUMIN 4.1 g/dL (3.4-5.0); DIRECT BILIRUBIN 0.2 mg/dL (0.0-0.2); TOTAL BILIRUBIN 0.6 mg/dL (0.2-1.0); TOTAL PROTEIN 8.2 g/dL (6.4-8.2)
--- NOTE | 2018-07-26 12:57 | RAD ---
CT of the abdomen and pelvis with contrast, 07/26/2018: HISTORY: Upper abdominal pain, fever Multidetector CT imaging was performed following an IV bolus injection of iodinated contrast material. No oral contrast material was administered for this exam. There is minimal streaky atelectasis posteriorly in the lung bases. The liver is at the upper limits of normal in size measuring 20 cm in craniocaudad extent at the level the right lobe. No hepatic mass or bile duct dilatation is evident. No dense gallstones are evident. The pancreas is unremarkable. The spleen is within normal limits in size measuring 13 cm in craniocaudad extent. No renal or adrenal abnormality is detected. No abdominal or pelvic adenopathy is seen. The uterus and ovaries are unremarkable. The bowel loops are not dilated. The appendix shows no abnormality. No free fluid or free air is evident in the abdomen or pelvis. IMPRESSION: 1. The liver is at the upper limits of normal in size. 2. No acute abdominal or pelvic abnormality is detected. Electronically signed by: Jim Valera MD (07/26/2018 12:53 PM) [facility]
[2018-07-26 13:00] LABS: INFLUENZA A PATIENT NEGATIVE (NEGATIVE); INFLUENZA B PATIENT NEGATIVE (NEGATIVE)
[2018-07-26 13:18] LABS: % ATYL 1 % (0-0); % BANDS 10 % (0-9); % EOS 1 % (0-5); % LYMPHS 4 % (24-48); % MONOS 8 % (0-10); % SEGS 76 % (35-66); PLT ESTIMATE ADEQUATE (ADEQUATE)
[2018-07-26] MEDS ORDERED: CEPH-264 PO (13:18)
[2018-07-26 13:26] VITALS: BP 132/68
== END 2018-07-26 13:28 | disposition home or self-care (01) ==
LOC: ER 10:29
DX: N39.0 Urinary tract infection, site not specified (principal); R10.12 Left upper quadrant pain; R11.0 Nausea; R50.9 Fever, unspecified
CPT/HCPCS: 36415; 71046; 74177; 80048; 80076; 81001; 81025; 83690; 85007; 85025; 86308; 87070; 87804; 87880; 96361; 96374; 99284; J1885; J7030

== ENCOUNTER 2019-04-08 11:30 | Day surgery (SDC) | payer BC ==
[~2019-04-08 11:30] MED LIST changes: +BUPIVACAINE-EPI 0.5%-1:200000 MPF 30 ML VIAL. INJ ONE; +CEPH-264 PO; +HYDROmorphone 2 MG/ML VIAL IV PRN; +IV RINGERS,LACTATED 1000ML 1,000 ML IV SCH; +LIDOCAINE 1% PF 2 ML VIAL. ID PRN; +MORPHINE SULFATE 2 MG/ML VIAL. IV PRN; +ONDANSETRON PF 4 MG/2 ML VIAL. IV PRN; +PROCHLORPERAZINE 10 MG/2 ML VIAL. IV PRN; +fentaNYL PF VIAL 100 MCG/2 ML VIAL IV PRN
[2019-04-08] MEDS ORDERED: LIDOCAINE 2% PF 5 ML VIAL. ONE (11:40)
[2019-04-08] MEDS ORDERED: PROPOFOL 20 ML IV ONE (11:40)
[2019-04-08] MEDS ORDERED: ROCURONIUM 50 MG/5 ML VIAL. ONE (11:40)
[2019-04-08] MEDS ORDERED: fentaNYL PF VIAL 100 MCG/2 ML VIAL ONE ×2 (11:41→14:28)
[2019-04-08 12:12] LABS: BILIRUBIN,URINE NEGATIVE (NEG); CLARITY,URINE CLEAR; COLOR,URINE YELLOW; NITRITE,URINE NEGATIVE (NEG); PH,URINE 7.5; PROTEIN,URINE NEGATIVE (NEG-TRACE); UROBILINOGEN,URINE 0.2 mg/dL (0.2 mg/dL)
[2019-04-08 12:25] LABS: BACTERIA,URINE 0 /HPF (0-FEW); RBC,URINE >40 /HPF (0-2); WBC,URINE 0 /HPF (0-4)
[2019-04-08] MEDS ORDERED: SUCCINYLCHOLINE 200 MG/10 ML VIAL. ONE (13:14)
[2019-04-08] MEDS ORDERED: diphenhydrAMINE 50 MG/ML VIAL ONE (13:43)
[2019-04-08] MEDS ORDERED: ONDANSETRON PF 4 MG/2 ML VIAL. ONE (13:43)
[2019-04-08] MEDS ORDERED: DEXAMETHASONE SOD PHOS 4 MG/ML VIAL ONE (13:43)
[2019-04-08] MEDS ORDERED: DESFLURANE 31 TO 60 MINUTES IH ONE (13:43)
[2019-04-08] MEDS ORDERED: NEOSTIGMINE METHYLSULFATE 5 MG/5 ML SYRINGE. ONE (13:53)
[2019-04-08] MEDS ORDERED: GLYCOPYRROLATE 1 MG/5 ML VIAL. ONE (13:53)
[2019-04-08] MEDS ORDERED: IBUP200T44 PO (14:28)
[2019-04-08] MEDS ORDERED: OXYC1TAB15 PO (14:28)
--- NOTE | 2019-04-08 14:33 | PDOC ---
BRIEF OPERATIVE NOTE Pre-Op Diagnosis Multiparous desires permanent sterilization Post-Op Diagnosis Same Procedure Performed Lap BTL with filshie clips Surgeon Jeffry Anesthesia Type: General Blood Loss 5cc Complications None JAYSON BARNES MD Apr 08, 2019 14:33
[2019-04-08] MEDS ORDERED: oxyCODONE/APAP 5/325 1 TAB TABLET PO ONE (15:00)
[2019-04-08 16:00] VITALS: BP 114/52
--- NOTE | 2019-04-08 18:34 | OP ---
DATE OF SURGERY: 04/08/2019 PREOPERATIVE DIAGNOSES: Multiparous, desires permanent sterilization. POSTOPERATIVE DIAGNOSES: Multiparous, desires permanent sterilization. PROCEDURE: Laparoscopic bilateral tubal ligation with Filshie clips. SURGEON: Rm Teran MD SKEIN WINDER: None. ANESTHESIA: General. ESTIMATED BLOOD LOSS: 5 mL. FLUIDS: Crystalloid. SPECIMENS: None. COMPLICATIONS: None. CONDITION: Stable. FINDINGS: Normal uterus, tubes, and ovaries. No overt evidence of endometriosis. DESCRIPTION OF PROCEDURE: After risks, benefits, indications, and alternatives were discussed in detail with the patient, the patient was brought to OR theater and placed in the dorsal lithotomy position in Philip stirrups. After adequate general anesthesia, the patient was prepped and draped in usual sterile manner. A sponge stick was placed in the vaginal vault. Attention was then turned to the anterior abdominal wall. A transverse infraumbilical incision was made with a scalpel. Through this via the Visiport, a 5-mm disposable trocar was placed. Pneumoperitoneum was created. A video laparoscope was placed. The above findings were noted. The patient was placed in Trendelenburg. A small suprapubic incision was made to receive 8-mm disposable trocar. This was placed under direct visualization. It had previously been infiltrated with 0.5% Marcaine with epinephrine. The Filshie clip apparatus was used first to identify the right tube and followed to its fimbriated end. Approximately 1-2 cm from the cornu, Filshie clip was placed. Good application was noted. Same procedure was carried out on the opposite side. Appendix was visualized, liver edge was visualized, and all appeared normal. The procedure was terminated. Filshie clip apparatus was removed. Video laparoscope was removed. Pneumoperitoneum was allowed to dissipate. All trocar sleeves were removed. Incisions were reapproximated with 0 Monocryl in subcuticular fashion. The infraumbilical incision was also infiltrated with 0.5% Marcaine with epinephrine. Procedure was terminated. Sponge, needle, and instrument counts were correct x3 per nursing staff. The patient went to Postoperative Anesthesia Recovery in stable condition. RM TERAN MD DR: IVA/doris JOB#: [id number] / [id number]
== END 2019-04-08 16:18 | disposition home or self-care (01) ==
LOC: SURG 11:30
PROVIDERS: ATTEND Specialist
DX: Z30.2 Encounter for sterilization (principal)
CPT/HCPCS: 58671; 81001; 81025; A7015; J0330; J1100; J1200; J2001; J2405; J2704; J2710; J3010; J3490

== ENCOUNTER → 2021-03-13 | Outpatient (CLI) | payer OTHER ==
[~2021-03-13] MED LIST changes: -BUPIVACAINE-EPI 0.5%-1:200000 MPF 30 ML VIAL. INJ ONE; -HYDROmorphone 2 MG/ML VIAL IV PRN; +IBUP200T44 PO; -IV RINGERS,LACTATED 1000ML 1,000 ML IV SCH; -LIDOCAINE 1% PF 2 ML VIAL. ID PRN; -MORPHINE SULFATE 2 MG/ML VIAL. IV PRN; -ONDANSETRON PF 4 MG/2 ML VIAL. IV PRN; +OXYC1TAB15 PO; -PROCHLORPERAZINE 10 MG/2 ML VIAL. IV PRN; -fentaNYL PF VIAL 100 MCG/2 ML VIAL IV PRN
--- NOTE | 2021-03-13 11:55 | CARD ---
MR#: [id number] Date of Study: 03/13/2021 Ordering Physician: REBECCA CROOKS, Referring Physician: REBECCA CROOKS, Tech: Cary Harvey [facility] APPROVED REPORT EXAM: Two-dimensional and M-mode echocardiogram with Doppler and color Doppler. Other Information Quality : AverageHR: 50bpm Rhythm : NSR INDICATION Chest Pain RISK FACTORS Hypertension Hyperlipidemia 2D DIMENSIONS RVDd3.0 (2.9-3.5cm)Left Atrium(2D)3.1 (1.6-4.0cm) IVSd0.6 (0.7-1.1cm)Aortic Root(2D)2.8 (2.0-3.7cm) LVDd4.3 (3.9-5.9cm)LVOT Diameter2.3 (1.8-2.4cm) PWd0.7 (0.7-1.1cm)LVDs3.3 (2.5-4.0cm) FS (%) 24.5 %SV41.4 ml Aortic Valve AoV Peak Cyrus.95.6cm/sAoV VTI21.0cm AO Peak GR.3.7mmHgLVOT Peak Cyrus.88.3cm/s AO Mean GR.2mmHgAVA (VMAX)3.77cm2 Mitral Valve MV E Kfodviry01.6cm/sMV DECEL [id number] MV A Yiyywhqs38.1cm/sE/A Ratio1.6 Tricuspid Valve TR P. [id number]/sTR Peak Gr.17mmHg LEFT VENTRICLE The left ventricle is normal size. There is normal left ventricular wall thickness. The left ventricu lar systolic function is normal with an ejection fraction of 50 to 55%. There is normal LV segmental wall motion. The left ventricular diastolic function and filling is normal for age. RIGHT VENTRICLE The right ventricle is normal size. There is normal right ventricular wall thickness. The right ventr icular systolic function is normal. ATRIA The left atrium size is normal. The right atrium size is normal. The interatrial septum is intact wit h no evidence for an atrial septal defect or patent foramen ovale as noted on 2-D or Doppler imaging. AORTIC VALVE The aortic valve is normal in structure and function. Doppler and Color Flow revealed no significant aortic regurgitation. There is no significant aortic valvular stenosis. MITRAL VALVE The mitral valve is normal in structure and function. There is no evidence of mitral valve prolapse. There is no mitral valve stenosis. Doppler and Color-flow revealed trace mitral regurgitation. TRICUSPID VALVE The tricuspid valve is normal in structure and function. Doppler and Color Flow revealed trace tricus pid regurgitation. Estimated PAP 20 mmHg. PULMONIC VALVE The pulmonary valve is normal in structure and function. Doppler and Color Flow revealed trace pulmon ic valvular regurgitation. GREAT VESSELS The aortic root is normal in size. The ascending aorta is normal in size. The IVC is normal in size a nd collapses >50% with inspiration. PERICARDIAL EFFUSION There is no evidence of significant pericardial effusion. Critical Notification Critical Value: No <Conclusion> The left ventricle is normal size. The left ventricular systolic function is normal with an ejection fraction of 50 to 55%. There is normal LV segmental wall motion. Doppler and Color Flow revealed no significant aortic regurgitation. There is no significant aortic valvular stenosis. Doppler and Color-flow revealed trace mitral regurgitation. Doppler and Color Flow revealed trace tricuspid regurgitation. Estimated PAP 20 mmHg. Signed by : Frederick Hutchison MD Electronically Approved : 03/13/2021 11:55:07
== END ==
LOC: ECHO 08:48
PROVIDERS: ATTEND Internal Medicine Cardiovascular Disease
DX: I34.1 Nonrheumatic mitral (valve) prolapse (principal)
CPT/HCPCS: 93306